=== PATIENT | female | born 1960 | race Caucasian/White ===

== ENCOUNTER → 2018-04-21 | Outpatient (CLI) | payer OTHER | LOC: RAD 10:02 | DX: R06.02 Shortness of breath (principal); I10 Essential (primary) hypertension ==

== ENCOUNTER → 2021-06-29 | Outpatient (CLI) | payer OTHER ==
--- NOTE | 2021-06-29 09:28 | 2DMMODE ---
[facility] [place] [address] 2 D/M-MODE ECHOCARDIOGRAM Name: ELVIA SEVERINO Room #: REG [facility]#: [id number] Admission: 06/29/21 Attend Phys: Carmen Loco MD Discharge: Date of : 58 Report #: [id number] THIS REPORT FOR: cc: Carmen Loco MD, Jennifer L MD Santiago, Patrick MD [facility] ~ APPROVED REPORT Study performed: 06/29/2021 08:04:46 EXAM: Comprehensive 2D, Doppler, and color-flow Echocardiogram Patient Location: Out-Patient Status: routine BSA: 2.15 HR: 82 bpm BP: 114/68 mmHg Rhythm: NSR Other Information Study Quality: Good Indications Murmur. Hx: HTN, HLP, DM. 2D Dimensions RVDd: 31.72 mm IVSd: 8.75 (7-11mm) LVOT Diam: 20.16 (18-24mm) LVDd: 45.43 mm PWd: 8.79 (7-11mm) Ascending Ao: 35.17 (22-36mm) LVDs: 29.43 (25-40mm) Left Atrium: 34.98 (27-40mm) Aortic Root: 31.56 mm Volumes Left Atrial Volume (Systole) Single Plane 4CH: 26.22 mL Single Plane 2CH: 39.08 mL LA ESV Index: 16.00 mL/m2 Aortic Valve AoV Peak Isaias.: 1.51 m/s AO Peak Gr.: 9.10 mmHg LVOT Max P.48 mmHg LVOT Max V: 1.06 m/s [facility] [address] [place] [address] 2 D/M-MODE ECHOCARDIOGRAM Name: ELVIA SEVERINO Room #: REG [facility]#: [id number] Admission: 06/29/21 Attend Phys: Carmen Loco, Discharge: Date of : 58 Report #: [id number] VANESSA Vmax: 2.24 cm2 Mitral Valve E/A Ratio: 0.9 MV Decel. Time: 271.06 ms MV E Max Isaias.: 0.54 m/s MV A Isaias.: 0.61 m/s MV PHT: 78.61 ms IVRT: 72.66 ms Pulmonary Valve PV Peak Isaias.: 1.04 m/s PV Peak Gr.: 4.35 mmHg Pulmonary Vein P Vein S: 0.82 m/s P Vein D: 0.33 m/s P Vein S/D Ratio: 2.48 Tricuspid Valve RAP Estimate: 5.00 mmHg Left Ventricle The left ventricle is normal size. There is normal LV segmental wall motion. There is normal left ventricular wall thickness. Left ventricular systolic function is normal. LVEF is 60-65%. Mild diastolic dysfunction is present (impaired relaxation pattern). Right Ventricle The right ventricle is normal size. The right ventricular systolic function is normal. Atria The left atrium size is normal. The right atrium size is normal. Aortic Valve The aortic valve is normal in structure. Trace aortic regurgitation. There is no aortic valvular stenosis. Mitral Valve The mitral valve is normal in structure. There is no mitral valve regurgitation noted. No evidence of mitral valve stenosis. Tricuspid Valve The tricuspid valve is normal in structure. There is no tricuspid [facility] [place] [address] 2 D/M-MODE ECHOCARDIOGRAM Name: ELVIA SEVERINO [id number] Admission: 06/29/21 Attend Phys: Carmen Loco, Discharge: Date of : 58 Report #: [id number] valve regurgitation noted. Unable to assess PA pressure. Pulmonic Valve The pulmonary valve is normal in structure. Trace pulmonic regurgitation. Great Vessels The aortic root is normal in size. The ascending aorta is normal in size. IVC is normal in size and collapses >50% with inspiration. Pericardium There is no pericardial effusion. <Conclusion> Normal left ventricular size/wall thickness Ejection fraction 60% Grade 1 diastolic dysfunction Normal right ventricular size/function Normal atrial size Color-flow Doppler study was performed of the aortic/mitral/tricuspid/pulmonary valve Normal aortic/mitral valve structure and function No tricuspid valve insufficiency No pericardial effusion Normal aortic root size. <ELECTRONICALLY SIGNED> By: Yoni Bishop MD, [facility] 06/29/21927 7 7 Yoni Bishop MD, [facility] /INF
== END ==
LOC: CV 08:41
PROVIDERS: ATTEND Internal Medicine
DX: I51.89 Other ill-defined heart diseases (principal); R01.1 Cardiac murmur, unspecified